=== PATIENT | male | born 1955 | race Caucasian/White ===

== ENCOUNTER 2018-03-02 10:47 | Day surgery (SDC) | payer BC ==
[2018-02-26 12:51] VITALS: BMI 29.7
[2018-03-02] MEDS ORDERED: LACTATED RINGERS 1,000 ML IV ONE (12:14)
[2018-03-02] MEDS ORDERED: LIDOCAINE 1% 20 ML VIAL (10MG/ML) FOR IV START INTRADERMA ONE (12:14)
[2018-03-02 12:18] VITALS: RESP 16; TEMP 97.8
[2018-03-02] MEDS ORDERED: LIDOCAINE 1% 20 ML VIAL (10MG/ML) FOR IV START INTRADERMA PRN (12:19)
[2018-03-02] MEDS ORDERED: LACTATED RINGERS 1,000 ML IV SCH (12:19)
[2018-03-02] MEDS ORDERED: MIDAZOLAM 2 MG/2 ML VIAL IV PRN (12:19)
[2018-03-02] MEDS ORDERED: PROPOFOL 10 MG/ML 20 ML VIAL IV ONE (13:30)
[2018-03-02] MEDS ORDERED: fentaNYL (PF) 50 MCG/ML 2 ML AMP ONE (13:30)
[2018-03-02] MEDS ORDERED: LIDOCAINE 1% INJ 10MG/ML (20 ML MDV) ONE (13:30)
--- NOTE | 2018-03-02 13:54 | P.PCN ---
Date of Procedure: 03/02/18 Procedure(s) Performed: Procedure: Total colonoscopy. Preoperative diagnosis: Positive occult blood in the stools. Postoperative diagnosis: Exam within normal limits. Preparation: HalfLytely prep. Sedation: Was provided by anesthesia. Brief clinical history: The patient is a 62-year-old male who was noted to have positive occult blood in his stools on his recent routine physical. The patient has no abdominal complaints or overt bleeding. His last colonoscopy was in 2010. He has no upper GI complaints or anemia. Procedure: With the patient on his left lateral decubitus position and after informed consent and adequate sedation, the perianal area was inspected and it did not show any fissures or fistulas. There were no masses felt on digital rectal examination. The Olympus CFQ 160L video colonoscope was then inserted in the rectum in the usual fashion and advanced to the cecum. The mucosa appeared healthy. No obvious polyps or tumors were seen or any potential sources of bleeding. I retroflexed the endoscope in the rectum before the endoscope was withdrawn. The patient tolerated the procedure well. Plan: The patient was reassured. In the absence of upper GI complaints or anemia, I did not recommend upper GI workup at this time for the workup of his Hemoccult positive stools, and this can be kept as a contingency based on his course. He will follow up with you as planned and I recommended repeat colonoscopy in 10 years.
[2018-03-02 14:19] VITALS: BP 124/81; PULSE 61
== END 2018-03-02 14:35 | disposition home or self-care (01) ==
LOC: ORWHC2ENDO 10:47
DX: R19.5 Other fecal abnormalities (principal); K21.9 Gastro-esophageal reflux disease without esophagitis
CPT/HCPCS: 45378; J2001; J3010; J2704